=== PATIENT | female | born 1985 | race Caucasian/White ===

== ENCOUNTER → 2016-11-08 | Outpatient (CLI) | payer OTHER | LOC: KOH-I 13:53 | DX: M06.372 Rheumatoid nodule, left ankle and foot (principal) | CPT/HCPCS: 73720; A9577 ==

== ENCOUNTER → 2017-01-02 | Outpatient (CLI) | payer OTHER ==
[2017-01-02 18:52] LABS: HEMOGLOBIN 13.6 gm/dl (12.3-15.3); RED BLOOD COUNT 4.54 M/UL (4.00-5.10); WHITE BLOOD COUNT 9.5 K/UL (4.5-11.0)
[2017-01-02 19:03] LABS: BUN/CREATININE RATIO 9 (0-10)
== END ==
LOC: LAB 18:14
PROVIDERS: Registered Nurse
DX: R53.83 Other fatigue (principal); R63.5 Abnormal weight gain
CPT/HCPCS: 80053; 82607; 84443; 85025